=== PATIENT | female | born 1990 | race Caucasian/White ===

== ENCOUNTER 2017-06-30 19:31 | Emergency (ER) | payer OTHER ==
[2017-06-30] MEDS ORDERED: NS 0.9% 1000 ML* 1,000 ML IV ONE (21:38)
[2017-06-30] MEDS ORDERED: Metoclopramide IV* 5 MG/ML 2 ML VIAL IV SLOW PU ONE (21:55)
[2017-06-30 22:04] LABS: ABS Basophils 0 10^3/ul (0-0.2); ABS Eosinophils 0.2 10^3/ul (0-0.6); ABS Lymphocytes 1.6 10^3/ul (1.0-4.8); ABS Monocytes 0.8 10^3/ul (0-0.8); ABS Neutrophils 6.8 10^3/ul (1.5-7.7); ABS Nucleated RBC 0.02 10^3/ul; Eosinophil % 1.8 % (0-6); Hematocrit 35 % (35-47); Hemoglobin 12.2 g/dl (12.0-16.0); Lymphocyte % 17.3 % (25-47); Mean Corpuscular HGB Conc 35 g/dl (31-36); Mean Corpuscular Hemoglobin 31 pg (27-31); Mean Corpuscular Volume 89 fL (80-97); Mean Platelet Volume 10 um3 (7.4-10.4); Nucleated Red Blood Cells % 0.2; Platelet Count 147 10^3/ul (150-450); Red Blood Count 3.98 10^6/ul (4.0-5.4); Red Cell Distribution Width 13 % (10.5-15); White Blood Count 9.4 10^3/ul (3.5-10.8)
--- NOTE | 2017-06-30 22:07 | ED ---
- HPI Summary HPI Summary: 27F at 17 weeks presents with sinus congestion, cough for a week. She states the sinus congestion has been getting worst. She denies any headache or fever. She admits to sore throat. She states she started to feel nauseous and vomited twice today and the developed epigastric pain in both RUQ and LUQ. She denies any pelvic pain, vaginal bleeding or discharge. She denies any dysuria. She denies any chest pain or SOB. She states this abdominal pain feels similar to pain has when has been dehydrated. She states it feels cramp like but only in upper abdomen. She states the has been going well and no compilations. She denies any medical conditions. - History of Current Complaint Chief Complaint: Jaycee Stated Complaint: 17 WEEKS PREG/POSS FLU Time Seen by Provider: 06/30/17 21:37 Pain Intensity: 4 - Allergies/Home Medications Allergies/Adverse Reactions: Allergies Allergy/AdvReac Type Severity Reaction Status Date / Time No Known Allergies Allergy Verified 06/30/17 19:38 PMH/Surg Hx/FS Hx/Imm Hx Infectious Disease History: No Infectious Disease History: Denies: Traveled Outside the [place] in Last 30 Days - Social History Alcohol Use: None Substance Use Type: Reports: None Smoking Status (MU): Never Smoked Tobacco Review of Systems Negative: Fever Positive: Nasal Discharge Negative: Chest Pain Negative: Shortness Of Breath Positive: Abdominal Pain, Vomiting, Nausea All Other Systems Reviewed And Are Negative: Yes Physical Exam - Physical Exam Triage Information Reviewed: Yes Vital Signs Reviewed: Yes Appearance: Positive: Well-Appearing Skin: Positive: Warm, Dry Head/Face: Positive: Normal Head/Face Inspection Eyes: Positive: Normal, EOMI, KANDY, Conjunctiva Clear ENT: Positive: Pharynx normal, Nasal congestion, TMs normal, Sinus tenderness Neck: Positive: Supple, Nontender, No Lymphadenopathy Respiratory/Lung Sounds: Positive: Clear to Auscultation, Breath Sounds Present Cardiovascular: Positive: Normal, RRR Abdomen Description: Positive: Soft, Other: - mild tenderness RUQ and LUQ Bowel Sounds: Positive: Present Neurological: Positive: Normal Psychiatric: Positive: Normal Diagnostics - Vital Signs Vital Signs Temp Pulse Resp BP Pulse Ox 06/30/17 19:35 97.9 F 81 16 123/73 99 - Laboratory Lab Results: Lab Results 06/30/17 Range/Units 21:50 WBC 9.4 (3.5-10.8) 10^3/ul RBC 3.98 L (4.0-5.4) 10^6/ul Hgb 12.2 (12.0-16.0) g/dl Hct 35 (35-47) % MCV 89 (80-97) fL MCH 31 (27-31) pg MCHC 35 (31-36) g/dl RDW 13 (10.5-15) % Plt Count 147 L (150-450) 10^3/ul MPV 10 (7.4-10.4) um3 Neut % (Auto) 72.1 (38-83) % Lymph % (Auto) 17.3 L (25-47) % Woods % (Auto) 8.5 (1-9) % Eos % (Auto) 1.8 (0-6) % Baso % (Auto) 0.3 (0-2) % Absolute Neuts (auto) 6.8 (1.5-7.7) 10^3/ul Absolute Lymphs (auto) 1.6 (1.0-4.8) 10^3/ul Absolute Monos (auto) 0.8 (0-0.8) 10^3/ul Absolute Eos (auto) 0.2 (0-0.6) 10^3/ul Absolute Basos (auto) 0 (0-0.2) 10^3/ul Absolute Nucleated RBC 0.02 10^3/ul Nucleated RBC % 0.2 Monoscreen Pending Result Diagrams: 06/30/17 21:50 06/30/17 21:50 Lab Statement: Any lab studies that have been ordered have been reviewed, and results considered in the medical decision making process. Re-Evaluation - Re-Evaluation First Eval Re-Evaluation Time: 22:47 Change: Improved Comment: after fluids abdominal exam benign Course/Dx - Course Course Of Treatment: 27F at 17 weeks presents with sinus congestion, cough for a week. She states the sinus congestion has been getting worst. She denies any headache or fever. She admits to sore throat. She states she started to feel nauseous and vomited twice today and the developed epigastric pain in both RUQ and LUQ. She denies any pelvic pain, vaginal bleeding or discharge. She denies any dysuria. She denies any chest pain or SOB. She states this abdominal pain feels similar to pain has when has been dehydrated. She states it feels cramp like but only in upper abdomen. She states the has been going well and no compilations. She denies any medical conditions. on exam has sinus tenderness and sounds congestions. lungs CTA. abdomen mild tenderness RUQ and LUQ that resolved after gave liter of fluid and reglan. due to be generalized in the epigastric region did not get gallbladder u/s and having normal LFT told that if pain localized to RUQ to return to gallbladder u/s. labs normal. flu, strept, and mono neg. will give script for augmentin that is sinus congestion lasts for two more days like bacterial at that point. heart rate was 157. told of reasons to return to ED for. patient understand and agrees with plan. - Differential Diagnosis/HQI/PQRI: Cholecystitis, Cholelithiasis, Intrauterine , Other: - sinusitis, influenza - Diagnoses Provider Diagnoses: Abdominal pain, , Vomiting, Sinusitis Discharge - Discharge Plan Condition: Good Disposition: HOME Prescriptions: Amoxicillin/Clavulanate TAB* [Augmentin TAB 500 mg*] 500 mg PO BID #20 tab Patient Education Materials: Rhinosinusitis (ED), Abdominal Pain in (ED) Referrals: Ginger Duran CNM [Primary Care Provider] - Additional Instructions: If sinus congestion last for two month days start antibiotic twice a day for 10 days Take nausea medication as prescribed Drink plenty of fluids Eat as tolerated Take Tylenol every 6 hours for pain Follow up with primary within 5 days Follow up with obgyn as schedule Return to ED if develop any new or worsening symptoms
[2017-06-30 22:19] LABS: EGFR Non-African American 129.9 (>60)
[2017-06-30 23:06] VITALS: BP 105/67
== END 2017-06-30 23:11 | disposition home or self-care (01) ==
LOC: ED 19:31
DX: O26.892 Other specified pregnancy related conditions, second trimester (principal); J32.9 Chronic sinusitis, unspecified; R10.9 Unspecified abdominal pain; O21.0 Mild hyperemesis gravidarum; Z3A.17 17 weeks gestation of pregnancy
CPT/HCPCS: 36415; 80053; 83605; 83690; 85025; 86141; 86308; 87502; 87651; 96361; 96374; 99283; J2765

== ENCOUNTER 2017-12-06 18:54 | Inpatient (IN) | payer OTHER ==
[2017-12-06] MEDS ORDERED: Promethazine INJ(RESTRICTED)* 25 MG/ML 1 ML VIAL IV ONE (19:24)
[2017-12-06] MEDS ORDERED: Dinoprostone* 10 MG VAG.SUPP VAGINAL ONE (19:24)
[2017-12-06] MEDS ORDERED: Nalbuphine* 20 MG/ML 1 ML VIAL IV ONE (19:24)
--- NOTE | 2017-12-06 19:36 | HP ---
General Information - General Information Maternal Age: 27 Grav: 1 Para: 0 SAB: 0 IEA: 0 Estimated Due Date: 12/05/17 Determined By: Early Ultrasound Gestational Age in Weeks and Days: 39 Weeks and 6 Days Maternal Blood Type and Rh: O Negative - Results this Serology/RPR Result: Non-Reactive Rubella Result: Non-Immune HBsAg Result: Negative HIV Result: Negative GBS Culture Result: Negative Past Medical History Pertinent Past Medical History: See Records - Prodromal labor starting at 36 weeks. Pertinent Past Surgical History: None Pertinent Family History: Non-Contributory - Antepartal Records Antepartal Records: Reviewed, Uncomplicated Review of Systems Constitutional: Comfortable CV Complaint: No Respiratory: Shortness of Breath: No Gastrointestinal: No Nausea/Vomiting, Normal Bowel Movement Genitourinary: No Dysuria, No Bleeding, No Leaking Fluid Musculoskeletal: Contractions Neurological: No Headache, No Visual Changes Movement: Normal Exam Allergies/Adverse Reactions: Allergies No Known Allergies Allergy (Verified 06/30/17 19:38) T 97.9; BP 129/73; P 80; R 66. - Measurements Height: 5 ft 5 in Weight: 172 lb Body Mass Index (BMI): 28.6 Pre- Weight: 120 lb - Exam Abdomen: No Upper Quadrant Pain Breast: Breast Exam Deferred CVA: No CVA Tenderness Extremities: No Edema Heart: Normal Rhythm/Heart Sounds HEENT: No Significant Findings Lungs: Clear Bilaterally Rectal: Rectal Exam Deferred Thyroid: No Thyromegaly - Abdominal Exam Abdomen Exam: Non-Tender, Fundal Height Consistent with Dates - Ultrasound/Biophysical Profile Ultrasound Status: Not Done Targeted Exam Findings See L&D Outpatient Visit Provider Note for Findings: N/A Estimated Weight: 7lbs Cervical Exam: 3cm Effacement: 90% Station: 0 Presenting Part: Vertex Membrane Status: Intact Bleeding/Discharge: None EFM Findings - External Monitor Findings Baseline Heart Rate: 120 External Monitor Findings: Accelerations Present, No Pattern of Variable or Late Decelerations, Variability Moderate, Baseline Stable Contractions: Irregular Assessment/Plan - Reason for Visit Reason for Visit: Presents for labor induction for prolonged prodromal labor - Plan Plan: Induction - Date/Time of Admission Date of Admission: 12/06/17 Time of Admission: 19:43
[2017-12-07] MEDS ORDERED: OBEPIDURAL* 0 ML EPIDURAL ONE (02:47)
[2017-12-07] MEDS ORDERED: Dibucaine 1% 28.35 GM TUBE PR PRN (04:07)
[2017-12-07] MEDS ORDERED: Acetaminophen TAB* 325 MG PO PRN (04:07)
[2017-12-07] MEDS ORDERED: Measles, Mumps,Rubella VACC* 0.5 ML/VIAL SUBCUT ONE (04:07)
[2017-12-07] MEDS ORDERED: RHO D Immune Globulin (HUMAN)* 300 MCG = 1,500 I.U. INJ IM ONE (04:07)
[2017-12-07] MEDS: Docusate CAP* 100 MG PO SCH ×3 (07:50→23:08)
[2017-12-07] MEDS: Witch Hazel PAD* JAR TOPICAL PRN (07:51)
[2017-12-07] MEDS: Ibuprofen TAB* 600 MG PO PRN ×3 (07:51→23:08)
[2017-12-08] MEDS: Ibuprofen TAB* 600 MG PO PRN ×3 (05:18→20:30)
[2017-12-08 06:37] LABS: Hematocrit 36 % (35-47); Hemoglobin 12.4 g/dl (12.0-16.0); Mean Corpuscular HGB Conc 34 g/dl (31-36); Mean Corpuscular Hemoglobin 30 pg (27-31); Mean Corpuscular Volume 88 fL (80-97); Mean Platelet Volume 12.2 um3 (7.4-10.4); Platelet Count 107 10^3/ul (150-450); Red Blood Count 4.15 10^6/ul (4.0-5.4); Red Cell Distribution Width 13 % (10.5-15); White Blood Count 10.5 10^3/ul (3.5-10.8)
[2017-12-08] MEDS: Docusate CAP* 100 MG PO SCH ×3 (07:38→20:31)
[2017-12-08 07:59] LABS: ABS Basophils 0 10^3/ul (0-0.2); ABS Eosinophils 0.2 10^3/ul (0-0.6); ABS Lymphocytes 1.8 10^3/ul (1.0-4.8); ABS Monocytes 0.7 10^3/ul (0-0.8); ABS Neutrophils 7.7 10^3/ul (1.5-7.7); ABS Nucleated RBC 0 10^3/ul; Lymphocyte % 17.3 % (25-47); Nucleated Red Blood Cells % 0.1
[2017-12-08] MEDS ORDERED: Ferrous Gluconate TAB* 324 MG TAB PO SCH (09:00)
--- NOTE | 2017-12-08 10:28 | PTEDU ---
Patient Name: DELIA BALDWIN NICOLASADELIA selected video: Never Ever Shake a Baby to view on 12/08/2017 at 10:27:52 AM [email or web address]
[2017-12-08] MEDS: Witch Hazel PAD* JAR TOPICAL PRN (20:31)
[2017-12-09] MEDS: Ibuprofen TAB* 600 MG PO PRN (04:51)
[2017-12-09 07:47] VITALS: BP 131/82
[2017-12-09] MEDS: Docusate CAP* 100 MG PO SCH (09:22)
== END 2017-12-09 10:20 | disposition home or self-care (01) | DRG 775 ==
LOC: MCHOBOUT 18:54 → MCHOB 19:27
PROVIDERS: ADMIT Midwife; ATTEND Midwife
PROC: 4A1HXCZ Monitoring of Products of Conception, Cardiac Rate, External Approach (ICD-10-PCS; principal; 2017-12-06)
PROC: 10E0XZZ Delivery of Products of Conception, External Approach (ICD-10-PCS; 2017-12-06)
PROC: 0KQM0ZZ Repair Perineum Muscle, Open Approach (ICD-10-PCS; 2017-12-06)
PROC: 3E0P7VZ Introduction of Hormone into Female Reproductive, Via Natural or Artificial Opening (ICD-10-PCS; 2017-12-06)
DX: O48.0 Post-term pregnancy (principal); O22.43 Hemorrhoids in pregnancy, third trimester; O63.0 Prolonged first stage (of labor); Z37.0 Single live birth; O47.9 False labor, unspecified; Z3A.40 40 weeks gestation of pregnancy; O70.1 Second degree perineal laceration during delivery; O69.2XX0 Labor and delivery complicated by other cord entanglement, with compression, not applicable or unspecified
CPT/HCPCS: 36415; 59200; 85025; A9270-GY